=== PATIENT | male | born 1985 | race Caucasian/White ===

== ENCOUNTER 2019-02-16 17:56 | Emergency (ER) | payer MEDICAID ==
[~2019-02-16] VITALS: Ht 180.3 cm; Wt 95.3 kg
--- NOTE | 2019-02-16 17:58 | NUR ---
Patient to ER bed 06 to gown for evaluation. Side rails up.
[2019-02-16 17:59] VITALS: BP_SYST 121
--- NOTE | 2019-02-16 18:00 | NUR ---
Pt c/o bib [facility] c/o flank pain s/p arrest.Officer reports pt arrested at 0900 with sudden onset.
--- NOTE | 2019-02-16 18:05 | NUR ---
ER at bedside examining patient.
[2019-02-16] MEDS ORDERED: KETOROLAC TROMETHAMINE 60 MG/2 ML VIAL IM ONE (18:15)
--- NOTE | 2019-02-16 18:15 | NUR ---
Pt medicated tolerated well.
--- NOTE | 2019-02-16 19:06 | NUR ---
Pt unable to provide sample
--- NOTE | 2019-02-16 20:00 | NUR ---
Pt is resting in bed, unable to produce urine at this time.
[2019-02-16] MEDS ORDERED: METHOCARBAMOL 500 MG TABLET PO ONE (21:00)
--- NOTE | 2019-02-16 21:44 | NUR ---
Pt is resting in bed and states he feels better after the Robaxin. Will continue to monitor at this time.
[2019-02-16 22:08] VITALS: BP_SYST 128
--- NOTE | 2019-02-16 22:11 | NUR ---
Patient given written and verbal discharge instructions and verbalizes understanding. ER MD discussed with patient the results and treatment provided. Patient in stable condition. ID arm band removed. Rx of Methocarbamol and Ibuprofen given. Patient educated on pain management and to follow up with PMD. Pain Scale 0/10. Opportunity for questions provided and answered. Medication side effect fact sheet provided.
== END 2019-02-16 22:11 ==
LOC: SED 17:56
DX: G89.29 Other chronic pain (principal); R07.89 Other chest pain
CPT/HCPCS: 71045; 93005; 96372; 99283; J1885